=== PATIENT | male | born 2000 | race Two or more races ===

== ENCOUNTER → 2021-10-17 | Emergency (ER) | payer SELFPAY ==
[~2021-10-17] VITALS: Ht 177.8 cm; Wt 63.5 kg
[2021-10-17 12:11] VITALS: BP 141/71
[2021-10-17 14:03] LABS: Basophils # (auto) 0.1 10 ^3/uL (0-0.2); Basophils % (auto) 0.8 % (0.0-2.0); Eosinophils # (auto) 0.2 10 ^3/uL (0-0.8); Eosinophils % (auto) 2.4 % (0.0-7.0); Hematocrit 50.3 % (41.0-53.0); Hemoglobin 16.9 g/dL (13.5-17.5); Lymphocytes # (auto) 0.7 10 ^3/uL (0.4-5.4); Lymphocytes % (auto) 10.2 % (10.0-50.0); Mean Corpuscular Hemoglobin 32.1 pg (28.0-32.0); Mean Corpuscular Hgb Conc. 33.6 g/dL (32.0-36.0); Mean Corpuscular Volume 95.4 fL (80.0-100.0); Monocytes # (auto) 0.5 10 ^3/uL (0-1.3); Monocytes % (auto) 7.7 % (0.0-12.0); Neutrophils # (auto) 5.3 10 ^3/uL (1.6-8.6); Neutrophils % (auto) 78.9 % (37.0-80.0); Nucleated Red Blood Cells % 0.1 %; Red Blood Cells 5.27 10^6/uL (4.5-5.90); White Blood Cell 6.8 10^3/uL (4.4-10.8)
[2021-10-17 14:22] LABS: Albumin 4.4 g/dL (3.4-5.0); Calcium 9.6 mg/dL (8.5-10.1); Potassium 4.6 mmol/L (3.5-5.1)
[2021-10-17 14:26] LABS: BUN/Creatinine Ratio 10.4; Bilirubin, Total 0.5 mg/dL (0.2-1.0)
== END | disposition home or self-care (01) ==
LOC: ER 12:06
DX: R10.32 Left lower quadrant pain (principal)
CPT/HCPCS: 36415; 74176; 80053; 83690; 85025

== ENCOUNTER 2025-09-17 06:08 | Day surgery (SDC) | payer MEDICAID ==
[2025-09-15 13:01] LABS: Hematocrit 46.1 % (41.0-53.0); Hemoglobin 15.9 g/dL (13.5-17.5); Mean Corpuscular Hemoglobin 33.0 pg (28.0-32.0); Mean Corpuscular Volume 95.4 fL (80.0-100.0); Nucleated Red Blood Cells % 0.0 %
[2025-09-15 13:06] LABS: Urine Amorphous Crystal FEW /hpf (None Seen); Urine Budding Yeast OCCASIONAL /hpf (None Seen); Urine Protein, UAD TRACE (Negative)
[2025-09-15 13:16] LABS: INR 1.03 (0.9-1.15); Partial Thromboplastin Time 29.3 SEC (24.5-34.5); Prothrombin Time 10.9 sec (9.3-11.8)
[2025-09-15 13:35] LABS: Albumin 4.6 g/dL (3.2-4.8); Alkaline Phosphatase 78 U/L (46-116); Anion Gap 9 (5-15); BUN/Creatinine Ratio 9.6 (10.0-20.0); Blood Urea Nitrogen 10 mg/dL (9-23); Calcium 9.7 mg/dL (8.7-10.4); Carbon Dioxide 31 mmol/L (20-31); Chloride 103 mmol/L (98-107); Glucose 106 mg/dL (74-106); Potassium 3.8 mmol/L (3.5-5.1); Sodium 143 mmol/L (136-145); Total Protein 7.5 g/dL (5.7-8.2)
[2025-09-15 13:36] LABS: Bilirubin, Total 1.1 mg/dL (0.2-1.0)
[2025-09-15 13:38] LABS: Alanine Aminotransferase 49 U/L (7-40)
--- NOTE | 2025-09-16 21:19 | DVHHP2 ---
History Allergies: Coded Allergies: No Known Drug Allergy (Verified Allergy, Unknown, 10/17/21) Chief Complaint: Interval appendectomy Present Illness(Onset/Duration Mr. Wooten is a 24 yo M who presents for elective interval appendectomy after suffering from appendicitis on 01/2025. Pt at that time presented to [facility] and was treated non operatively. Pt is still having minor pain episodes. Pt has no questions this am. Denies: fevers, chills, nausea, vomiting, being sick or srecently sick. non contributory Past Surgical History PMH: appendicitis PSH denies Physical Exam Skin no rashes EENT neck supple Chest and Lungs non labored breathing with symmetric expansion Abdomen flat, soft, depressible, non tender Extremities moves all with positive distal pulses x4 Plan Mr. Wooten is a 24 yo M who presents for elective interval appendectomy after appendicitis that was treated non op back on 01/2025. Pt has occasional pain episodes. No questions this am. Labs WNL. Will proceed with surgery as planned. DARLIN DAY MD Sep 16, 2025 21:19
[~2025-09-17] VITALS: Ht 177.8 cm; Wt 68.0 kg
[2025-09-17] MEDS ORDERED: MIDAZOLAM HCL 2MG/2ML 2ml VIAL (1mg/ml) ONE (07:15)
[2025-09-17] MEDS ORDERED: fentaNYL CITRATE 100 MCG/2 ML VL ONE (07:15)
[2025-09-17] MEDS ORDERED: ROCURONIUM 10MG/ML 10ML VIAL IV ONE (07:16)
[2025-09-17] MEDS ORDERED: PROPOFOL 10 MG/ML 20 ML IV ONE (07:16)
[2025-09-17] MEDS ORDERED: HYDROmorphone HCL 2 MG/ML VL/or syr ONE (07:16)
[2025-09-17] MEDS ORDERED: GLYCOPYRROLATE 0.2 MG/ML 1ML VIAL ONE (07:16)
[2025-09-17] MEDS ORDERED: KETOROLAC TROMETH 30 MG/ML 1ML VIAL ONE (07:16)
[2025-09-17] MEDS ORDERED: ONDANSETRON HCL 4 MG/2 ML VIAL ONE (07:16)
[2025-09-17] MEDS ORDERED: LIDOCAINE 2% (LOCAL ANESTH.) PF 5ml SDV ONE (07:16)
[2025-09-17] MEDS: ceFAZolin 2 GM/D5W50ml 50 ML IV ONE (07:40)
[2025-09-17] MEDS: BUPIVACAINE 0.25% INJ 50ML VIAL ONE (07:49)
[2025-09-17] MEDS ORDERED: SUGAMMADEX 200mg/2ml Vial (100MG/ML) IV ONE (08:25)
--- NOTE | 2025-09-17 08:39 | DVHOP2 ---
Operative Report - 2 Report Details Date: 09/17/25 Preop Diagnosis: Chronic appendicitis Postop Diagnosis: Chronic appendicitis Surgeon: Barney Morse MD Anesthesiologist: Dr. Dang Anesthesia: General Consent: The patient was informed of the risks and benefits of the procedure. These include but are not limited to complications of anesthesia, postoperative infection, incomplete relief of symptoms, recurrence of symptoms, damage to b lood vessels, nerves and tendons, deep venous thrombosis, pulmonary embolism and possible need for repeat surgery in the future. Complications: None Estimated Blood Loss: 10 mL Findings: Normal-appearing appendix. No other pathology noted in the peritoneal cavity. Indications for Surgery: Acute appendicitis episode on January of 2025 with occasional residual right lower quadrant pain up to 4-5 pain scale in severity. Name of Procedure Performed Diagnostic laparoscopy and laparoscopic appendectomy Procedure Details Procedure Details: Upon arriving to the operating room the patient was transferred to the operating table and placed in the supine position with arms extended. General endotracheal anesthesia was established. Time-out was observed. Orellana catheter was placed. Patient was then prepped and draped in the standard sterile surgical fashion with chlorhexidine. I then proceeded to make an infraumbilical curvilinear incision and carried the dissection down to fascia. Once at the fascia I grasped the umbilical stalk with Jac clamp and walked it down to the base. Once at the base of the umbilical stalk I proceeded to gain entry into the peritoneal cavity utilizing Armin technique. I then placed a fascial retention stitch of 0 Vicryl in [id number] fashion. I then introduced the Armin cannula into the peritoneal cavity and insufflated to 15 mmHg with toleration. I then inserted a 10 mm 30 degree laparoscope, surveyed the entry site, no injuries noted. I then placed 2 additional 5 mm working ports at the suprapubic area and at the left lower quadrant area. Peritoneal cavity was surveyed in his systematic fashion, starting with the pelvis, right lower quadrant, right upper quadrant, left upper quadrant, left lower quadrant, no pathology noted. Patient was then placed in the Trendelenburg position right side up. I then swept the omentum site and immediately saw the cecum with the appendix. The appendix was then grasped near its base. A mesenteric rent was made at the base with [place]. The base of the appendix was then transected with an Endo-LUCÍA 45 mm white load. A 2nd white load was used to transect the mesoappendix. Appendix was then placed in the Endo-Catch bag. I then surveyed the staple lines and noted a small squirter coming from the mesenteric staple line. The mesenteric staple line was then reinforced with 5 mm clips along it, hemostasis achieved. I then proceeded to irrigate the surgical site and suctioned the effluent until it was clear. Bed was then leveled, and joseph lines were reassessed. Both staple lines were intact and hemostatic. I then proceeded to remove the Endo-Catch bag with the appendix out of the infraumbilical site, under direct vision. This concluded the intraperitoneal portion of the operation. The 2 5 mm working ports were removed under direct vision, no bleeding coming from abdominal wall. Peritoneal cavity was allowed to fully desufflate. Previous fascial retention suture was closed. All skin sites were closed with 4-0 Monocryl and Dermabond. 0.25% Marcaine was used as local anesthetic. Orellana was removed. Patient tolerated the procedure well and was transferred to PACU in stable condition. Specimen: Appendix Condition Stable Disposition Home BARNEY DAY MD Sep 17, 2025 08:38
[2025-09-17 08:46] VITALS: PULSE 97; RESP 16; TEMP 97.8; O2SAT 96
[2025-09-17] MEDS ORDERED: ONDANSETRON HCL 4 MG/2 ML VIAL IV PRN (09:00)
[2025-09-17] MEDS ORDERED: HYDROmorphone HCL 2 MG/ML VL/or syr IV PRN (09:00)
[2025-09-17] MEDS ORDERED: ACETAMINOPHEN IV 1000 MG/100ML (10MG/ML) IV ONE (09:00)
[2025-09-17 09:46] VITALS: BP 121/80; PULSE 77; RESP 17; O2SAT 97
== END 2025-09-17 10:00 | disposition home or self-care (01) ==
LOC: SUR 06:08
PROVIDERS: ATTEND Student in an Organized Health Care Education/Training Program
DX: K36 Other appendicitis (principal)
CPT/HCPCS: 36415; 44970; 80053; 81001; 85025; 85610; 85730; 86850; 86900; 86901; 88304; A4649; J0690; J1100; J1171; J1885; J2003; J2250; J2405; J2704; J3010; J7030; J3490